=== PATIENT | male | born 1955 | race Caucasian/White ===

== ENCOUNTER 2017-10-29 12:19 | Inpatient (IN) | payer MEDICAID ==
[2017-10-29] MEDS ORDERED: Ondansetron 4 MG/2 ML SDV IV ONE (12:43)
--- NOTE | 2017-10-29 13:57 | CR ---
CLINICAL HISTORY: 62-year-old male with multiple myeloma and clinical "pneumonia". INTERPRETATION: PA lateral chest confirms peribronchial "cuffing". Healed fracture deformity (callus) posteriorly left fifth rib since 2016. Poor inspiration and patchy bibasilar atelectasis (developing retrocardiac pneumonitis on left?) new since AP portable film 13 October 2015. Clinical aspiration? Normal cardiac silhouette without cephalization of vascular flow, signs of alveolar edema or dependen t pleural effusion. No new lung mass, hilar lymphadenopathy or focal lobar pneumonia. No lobar collapse. No pneumothorax. CONCLUSION: Bronchitis. Bibasilar atelectasis (developing left lower lobe pneumonitis?). Old left fif th rib fracture.
[2017-10-29] MEDS ORDERED: cefTRIAXone 1 GM Vial IVPUSH ONE (14:03)
--- NOTE | 2017-10-29 14:07 | EDM.PDOC ---
<Carlota Molina - Last Filed: 10/29/17 19:28> ED HPI GENERAL MEDICAL PROBLEM - General Chief Complaint: General Stated Complaint: [id number] LIVER PROBLEMS NURSE TOLD TO GO TO ER Time Seen by Provider: 10/29/17 12:20 Source of Information: Reports: Patient, Family, RN, RN Notes Reviewed History Limitations: Reports: No Limitations - History of Present Illness INITIAL COMMENTS - FREE TEXT/NARRATIVE: Abimael is 62 yo male who presents today due to generalized weakness and productive cough. Reports that he was called by the clinic to come to the ED due to kidney failure. He reports that he has been sick for the last week. Has had fever and chills. Reports that he has been coughing up large amounts of sputum. Reports nausea and vomiting. Slight shortness of breath. Denies abd pain , chest pain, or bloody stools. Location: Reports: Chest (Shortness of breath ) Severity: Moderate Improves with: Reports: Rest Worsens with: Reports: Movement Associated Symptoms: Reports: cough w sputum, Fever/Chills, Nausea/Vomiting - Related Data Allergies Allergy/AdvReac Type Severity Reaction Status Date / Time No Known Allergies Allergy Verified 10/29/17 15:14 Home Meds: Home Meds Furosemide [Furosemide] 20 mg PO DAILY PRN 11/12/16 [History] Ondansetron [Ondansetron ODT] 8 mg PO Q8H PRN 11/12/16 [History] Cyanocobalamin (Vitamin B-12) [Cyanocobalamin Injection] 1,000 mcg IJ .MONTHLY 11/13/16 [History] Azithromycin [IJD: Azithromycin] 250 mg PO DAILY 10/29/17 [History] Benzonatate 100 mg PO Q6H PRN 10/29/17 [History] Methylprednisolone [IJD: Methylprednisolone] 4 mg PO ASDIRECTED 10/29/17 [ History] Potassium Chloride [Potassium Chloride Solution] 5 ml PO BID 10/29/17 [History] ED ROS GENERAL - Review of Systems Review Of Systems: ROS reveals no pertinent complaints other than HPI. ED EXAM, GENERAL - Physical Exam Exam Limited By: No Limitations General Appearance: Alert, WD/WN, No Apparent Distress Eye Exam: Bilateral Eye: PERRL Ears: Normal External Exam, Normal Canal, Hearing Grossly Normal, Normal TMs Ear Exam: Bilateral Ear: Auricle Normal, Canal Normal, TM normal Nose: Normal Inspection, Normal Mucosa, No Blood Throat/Mouth: Normal Inspection, Normal Lips, Normal Teeth, Normal Gums, Normal Oropharynx, Normal Voice, No Airway Compromise Head: Atraumatic, Normocephalic Neck: Normal Inspection, Supple, Non-Tender, Full Range of Motion Respiratory/Chest: No Respiratory Distress, Other (Coarse lung sounds noted throughout) Cardiovascular: Normal Peripheral Pulses, Regular Rate, Rhythm, No Edema, No Gallop, No JVD, No Murmur, No Rub GI/Abdominal: Normal Bowel Sounds, Soft, Non-Tender, No Organomegaly, No Distention, No Abnormal Bruit, No Mass (Male) Exam: Deferred Rectal (Males) Exam: Deferred Back Exam: Normal Inspection, Full Range of Motion, NT Extremities: Normal Inspection, Normal Range of Motion, Non-Tender, Normal Capillary Refill, No Pedal Edema Neurological: Alert, Oriented, CN II-XII Intact, Normal Cognition, Normal Gait, Normal Reflexes, No Motor/Sensory Deficits Psychiatric: Normal Affect, Normal Mood Skin Exam: Warm, Dry, Intact, Normal Color, No Rash Lymphatic: No Adenopathy Course - Vital Signs Last Recorded V/S: Last Vital Signs Temp 37.1 C 10/29/17 14:56 Pulse 83 10/29/17 14:56 Resp 20 10/29/17 14:56 BP 107/53 L 10/29/17 14:56 Pulse Ox 92 L 10/29/17 14:56 - Orders/Labs/Meds Orders: Active Orders 24 hr Category Date Time Status RT Aerosol Therapy [RC] ASDIRECTED Care 10/29/17 15:42 Active BASIC METABOLIC PANEL,BMP [CHEM] AM Lab 10/30/17 05:15 Ordered C DIFFICILE TOXIN BY PCR [MREF] Routine Lab 10/29/17 19:32 Ordered CBC WITH AUTO DIFF [HEME] AM Lab 10/30/17 05:15 Ordered CULTURE BLOOD [BC] Stat Lab 10/29/17 12:48 Received CULTURE BLOOD [BC] Stat Lab 10/29/17 12:58 Received CULTURE SPUTUM + SMEAR [RM] Routine Lab 10/29/17 16:00 Results CULTURE STREP A CONFIRMATION [RM] Routine Lab 10/29/17 16:00 Results STREP SCRN A RAPID W CULT CONF [RM] Routine Lab 10/29/17 16:00 Results Acyclovir [Zovirax] Med 10/29/17 21:00 Active 400 mg PO BID Albuterol [Proventil Neb Soln] Med 10/29/17 15:41 Active 2.5 mg NEB Q4HRRT PRN Aspirin Med 10/30/17 08:00 Active 81 mg PO WITHBREAKFAST Azithromycin [Zithromax] 500 mg Med 10/29/17 17:00 Active Sodium Chloride 0.9% [Normal Saline] 250 ml IV Q24H Benzonatate [Tessalon Perles] Med 10/29/17 15:38 Active 100 mg PO Q6H PRN NS + KCl 20mEq/L [Normal Saline with 20 mEq KCl] 1,000 Med 10/29/17 15:45 Active ml IV ASDIRECTED Pantoprazole [ProTONIX] Med 10/30/17 06:00 Active 40 mg PO ACBREAKFAST Potassium Chloride [Potassium Chloride Solution] Med 10/29/17 21:00 Active 20 meq PO BID cefTRIAXone [Rocephin] Med 10/30/17 14:00 Active 1 gm IVPUSH Q24H Blood Culture x2 Reflex Set [OM.PC] Stat Oth 10/29/17 12:42 Ordered Medication Orders Acetaminophen (Tylenol) 650 mg PO Q4H PRN PRN Reason: Pain (Mild 1-3)/fever Acyclovir (Zovirax) 400 mg PO BID SHANIA Albuterol (Proventil Neb Soln) 2.5 mg NEB Q4HRRT PRN PRN Reason: sob Aspirin (Aspirin) 81 mg PO WITHBREAKFAST SHANIA Benzonatate (Tessalon Perles) 100 mg PO Q6H PRN PRN Reason: Cough Ceftriaxone Sodium (Rocephin) 1 gm IVPUSH Q24H [facility]AN[facility] Heparin Sodium (Porcine) (Heparin Sodium) 5,000 units SUBCUT Q8HR SHAN[facility] Potassium Chloride/Sodium Chloride (Normal Saline With 20 Meq Kcl) 1,000 mls @ 100 mls/hr IV ASDIRECTED SHANIA Last Admin: 10/29/17 15:50 Dose: 100 mls/hr Azithromycin 500 mg/ Sodium (Chloride) 250 mls @ 250 mls/hr IV Q24H SHANIA Last Admin: 10/29/17 17:17 Dose: 250 mls/hr Oseltamivir Phosphate (Tamiflu) 30 mg PO BID SHANIA Pantoprazole Sodium (Protonix) 40 mg PO ACBREAKFAST SHANIA Potassium Chloride (Potassium Chloride Solution) 20 meq PO BID SHANIA Sodium Chloride (Saline Flush) 10 ml FLUSH ASDIRECTED PRN PRN Reason: Keep Vein Open Zolpidem Tartrate (Ambien) 5 mg PO BEDTIME PRN PRN Reason: Sleep Labs: Laboratory Tests 10/29/17 10/29/17 10/29/17 Range/Units 12:48 12:48 12:48 WBC 14.4 H (5.0-10.0) 10^3/uL RBC 4.60 (4.6-6.2) 10^6/uL Hgb 15.3 D (14.0-18.0) g/dL Hct 43.5 (40.0-54.0) % MCV 94.6 D (80-100) fL MCH 33.3 (27.0-34.0) pg MCHC 35.2 H (33.0-35.0) g/dL Plt Count 157 (150-450) 10^3/uL Neut % (Auto) 83.0 H (42.2-75.2) % Lymph % (Auto) 6.1 L (20.5-50.1) % [place] % (Auto) 10.8 H (2-8) % Eos % (Auto) 0.0 L (1.0-3.0) % Baso % (Auto) 0.1 (0.0-1.0) % Sodium 134 L (135-145) mmol/L Potassium 3.6 (3.6-5.0) mmol/L Chloride 99 L (101-111) mmol/L Carbon Dioxide 19.0 L (21.0-31.0) mmol/L Anion Gap 19.6 BUN 32 H (7-18) mg/dL Creatinine 3.7 H D (0.6-1.3) mg/dL Est Cr Clr Drug Dosing 23.09 mL/min Estimated GFR (MDRD) 17 BUN/Creatinine Ratio 8.64 Glucose 131 H (74-105) mg/dL Lactic Acid 2.1 (0.5-2.2) mmol/L Calcium 9.2 (8.4-10.2) mg/dl Total Bilirubin 1.2 H (0.2-1.0) mg/dL AST 49 H (10-42) IU/L ALT 49 (10-60) IU/L Alkaline Phosphatase 37 L (42-121) IU/L Total Protein 9.2 H (6.7-8.2) g/dl Albumin 4.8 (3.2-5.5) g/dl Globulin 4.4 Albumin/Globulin Ratio 1.09 Meds: Medications Generic Name Dose Route Start Last Admin Trade Name Freq PRN Reason Stop Dose Admin Acetaminophen 650 mg 10/29/17 15:49 Tylenol PO Q4H PRN Pain (Mild 1-3)/fever Acyclovir 400 mg 10/29/17 21:00 Zovirax PO BID SHANIA Albuterol 2.5 mg 10/29/17 15:41 Proventil Neb Soln NEB Q4HRRT PRN sob Aspirin 81 mg 10/30/17 08:00 Aspirin PO WITHBREAKFAST SHANIA Benzonatate 100 mg 10/29/17 15:38 Tessalon Perles PO Q6H PRN Cough Ceftriaxone Sodium 1 gm 10/30/17 14:00 Rocephin IVPUSH Q24H SHANIA Heparin Sodium (Porcine) 5,000 units 10/29/17 22:00 Heparin Sodium SUBCUT Q8HR SHANIA Potassium Chloride/Sodium Chloride 1,000 mls @ 100 mls/hr 10/29/17 15:45 15:50 Normal Saline With 20 Meq Kcl IV 100 mls/hr ASDIRECTED SHANIA Administration Azithromycin 500 mg/ Sodium 250 mls @ 250 mls/hr 10/29/17 17:00 10/29/17 17: 17 Chloride IV 250 mls/hr Q24H SHANIA Administration Oseltamivir Phosphate 30 mg 10/29/17 19:00 Tamiflu PO BID SHANIA Pantoprazole Sodium 40 mg 10/30/17 06:00 Protonix PO ACBREAKFAST SHANIA Potassium Chloride 20 meq 10/29/17 21:00 Potassium Chloride Solution PO BID [facility] Sodium Chloride 10 ml 10/29/17 15:49 Saline Flush FLUSH ASDIRECTED PRN Keep Vein Open Zolpidem Tartrate 5 mg 10/29/17 15:49 Ambien PO BEDTIME PRN Sleep Discontinued Medications Generic Name Dose Route Start Last Admin Trade Name Freq PRN Reason Stop Dose Admin Azithromycin Confirm 10/29/17 17:00 10/29/17 17:17 Zithromax Administered 10/29/17 17:01 Not Given Dose 500 mg .ROUTE .STK-MED ONE Ceftriaxone Sodium 1 gm 10/29/17 14:03 10/29/17 14:11 Rocephin IVPUSH 10/29/17 14:04 1 gm ONETIME ONE Administration Ceftriaxone Sodium 1,000 mg/ 50 mls @ 100 mls/hr 10/30/17 15:45 Sodium Chloride IV Q24H SHANIA Ondansetron HCl 4 mg 10/29/17 12:43 10/29/17 12:53 Zofran IV 10/29/17 12:44 4 mg ONETIME ONE Administration Oseltamivir Phosphate 30 mg 10/29/17 18:45 Tamiflu PO BID SHANIA Departure - Departure Disposition: Admitted As Inpatient 65 Clinical Impression: Acute renal failure Qualifiers: Acute renal failure type: unspecified Qualified Code(s): N17.9 - Acute kidney failure, unspecified Pneumonia Qualifiers: Pneumonia type: due to unspecified organism Laterality: left Lung location: lower lobe of lung Qualified Code(s): J18.1 - Lobar pneumonia, unspecified organism - Discharge Information - My Orders Last 24 Hours: My Active Orders 10/29/17 12:42 Blood Culture x2 Reflex Set [OM.PC] Stat 10/29/17 12:48 CULTURE BLOOD [BC] Stat 10/29/17 12:58 CULTURE BLOOD [BC] Stat - Assessment/Plan Last 24 Hours: My Active Orders 10/29/17 12:42 Blood Culture x2 Reflex Set [OM.PC] Stat 10/29/17 12:48 CULTURE BLOOD [BC] Stat 10/29/17 12:58 CULTURE BLOOD [BC] Stat <Darryl Arboleda - Last Filed: 10/29/17 19:35> Past Medical History HEENT History: Reports: Impaired Vision, Other (See Below) Other HEENT History: Pt wears glasses Other Cardiovascular History: lightheaded Respiratory History: Reports: SOB Musculoskeletal History: Reports: Fracture Other Musculoskeletal History: 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 Hematologic History: Reports: Anemia Oncologic (Cancer) History: Reports: Other (See Below) Other Oncologic History: multiple myeloma - Infectious Disease History Infectious Disease History: Reports: Chicken Pox, Measles, Mumps, Rubella - Past Surgical History Cardiovascular Surgical History: Reports: None Oncologic Surgical History: Reports: Bone Marrow Aspiration Social & Family History - Family History Family Medical History: Noncontributory Cardiac: Reports: ID Neurological: Reports: CVA Psychiatric: Reports: Depression Endocrine/Metabolic: Reports: Diabetes, type II Oncologic: Reports: Leukemia - Tobacco Use Smoking Status *Q: Never Smoker Second Hand Smoke Exposure: No - Caffeine Use Caffeine Use: Reports: Coffee, Soda - Recreational Drug Use Recreational Drug Use: No ED EXAM, GENERAL - Physical Exam Exam: See Below Departure - Departure Time of Disposition: 14:04 Condition: Fair
[2017-10-29] MEDS ORDERED: Benzonatate 100 MG Cap PO PRN (15:38)
[2017-10-29] MEDS ORDERED: Albuterol 0.083% 2.5 MG/3 ML Neb Soln NEB PRN (15:41)
[2017-10-29] MEDS ORDERED: Zolpidem 5 MG Tab PO PRN (15:49)
[2017-10-29] MEDS ORDERED: Acetaminophen 325 MG Tab PO PRN (15:49)
[2017-10-29] MEDS ORDERED: Sodium Chloride 0.9% 10 ML Syringe FLUSH PRN (15:49)
[2017-10-29] MEDS: NS + KCl 20mEq/L 1,000 ML IV SCH (15:50)
--- NOTE | 2017-10-29 16:08 | PCM.HP ---
H&P History of Present Illness - General Date of Service: 10/29/17 Admit Problem/Dx: Admission Diagnosis/Problem Admission Diagnosis/Problem Acute renal failure Source of Information: Patient, Family - History of Present Illness Initial Comments - Free Text/Narative: The patient is a 62-year-old with a history of multiple myeloma. The patient has been on chemotherapy. He has been on prophylaxis with Valtrex and Bactrim. The patient developed generalized weakness, sore throat, chills. Associated with cough and yellow sputum. This started about 2-3 days prior to presentation. The patient was seen by his primary care physician today and was told to start antibiotic. He was given a prescription of azithromycin. He was given 1 g of IV Rocephin. He was given steroid Dosepak. He took on today's doses in one go around noon. He is also complaining all found was bowel movement. Had 4 watery diarrhea yesterday. 2 today. No associated abdominal pain. He was supposed to get chemotherapy tomorrow. He had the blood test today. He was noted to have elevated creatinine and was told to come to the emergency room. - Related Data Allergies/Adverse Reactions: Allergies Allergy/AdvReac Type Severity Reaction Status Date / Time No Known Allergies Allergy Verified 10/29/17 15:14 Home Medications: Home Meds Furosemide [Furosemide] 20 mg PO DAILY PRN 11/12/16 [History] Ondansetron [Ondansetron ODT] 8 mg PO Q8H PRN 11/12/16 [History] Cyanocobalamin (Vitamin B-12) [Cyanocobalamin Injection] 1,000 mcg IJ .MONTHLY 11/13/16 [History] Azithromycin [IJD: Azithromycin] 250 mg PO DAILY 10/29/17 [History] Benzonatate 100 mg PO Q6H PRN 10/29/17 [History] Methylprednisolone [IJD: Methylprednisolone] 4 mg PO ASDIRECTED 10/29/17 [ History] Potassium Chloride [Potassium Chloride Solution] 5 ml PO BID 10/29/17 [History] Past Medical History HEENT History: Reports: Impaired Vision, Other (See Below) Other HEENT History: Pt wears glasses Other Cardiovascular History: lightheaded Respiratory History: Reports: SOB, Other (See Below) Other Respiratory History: SOB with chemo Gastrointestinal History: Reports: None Musculoskeletal History: Reports: Fracture Other Musculoskeletal History: 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 Endocrine/Metabolic History: Reports: Obesity/BMI 30+ Hematologic History: Reports: Anemia Oncologic (Cancer) History: Reports: Other (See Below) Other Oncologic History: multiple myeloma - Infectious Disease History Infectious Disease History: Reports: Chicken Pox, Measles, Mumps, Rubella - Past Surgical History Head Surgeries/Procedures: Reports: None HEENT Surgical History: Reports: None Cardiovascular Surgical History: Reports: None Respiratory Surgical History: Reports: None GI Surgical History: Reports: Colonoscopy Endocrine Surgical History: Reports: None Musculoskeletal Surgical History: Reports: None Oncologic Surgical History: Reports: Bone Marrow Aspiration Social & Family History - Family History Family Medical History: Noncontributory Cardiac: Reports: SD Neurological: Reports: CVA Psychiatric: Reports: Depression Endocrine/Metabolic: Reports: Diabetes, type II Oncologic: Reports: Leukemia - Tobacco Use Smoking Status *Q: Never Smoker Second Hand Smoke Exposure: Yes - Caffeine Use Caffeine Use: Reports: Coffee, Soda - Recreational Drug Use Recreational Drug Use: No H&P Review of Systems - Review of Systems: Review Of Systems: See Below General: Reports: Chills. Denies: Fever Pulmonary: Reports: Shortness of Breath, Cough, Sputum. Denies: Hemoptysis Cardiovascular: Denies: Chest Pain Gastrointestinal: Denies: Abdominal Pain Genitourinary: Denies: Dysuria Psychiatric: Denies: Confusion Exam - Exam Exam: See Below - Vital Signs Vital Signs: Last Vital Signs Temp 37.1 C 10/29/17 14:56 Pulse 83 10/29/17 14:56 Resp 20 10/29/17 14:56 BP 107/53 L 10/29/17 14:56 Pulse Ox 92 L 10/29/17 14:56 Weight: 111.493 kg - Exam General: Alert, Oriented Lungs: Normal Respiratory Effort, Decreased Breath Sounds Cardiovascular: Regular Rate, Regular Rhythm GI/Abdominal Exam: Normal Bowel Sounds, Soft, Non-Tender Extremities: No Pedal Edema - Patient Data Result Diagrams: 10/29/17 12:48 10/29/17 12:48 Imaging Impressions Last 24 hrs: The official reading of the chest x-ray from today was questioning left lower lobe infiltrate, bronchitis. *Q Meaningful Use (ADM) - VTE *Q VTE Criteria *Q: - Stroke *Q Stroke Criteria *Q: - AMI *Q AMI Criteria *Q: - Problem List (1) Acute renal failure SNOMED Code(s): 23149599 ICD Code: N17.9 - ACUTE KIDNEY FAILURE, UNSPECIFIED Status: Acute Current Visit: Yes Qualifiers: Acute renal failure type: unspecified Qualified Code(s): N17.9 - Acute kidney failure, unspecified (2) Pneumonia SNOMED Code(s): 473560058 ICD Code: J18.9 - PNEUMONIA, UNSPECIFIED ORGANISM Status: Acute Current Visit: Yes Qualifiers: Pneumonia type: due to unspecified organism Laterality: left Lung location: lower lobe of lung Qualified Code(s): J18.1 - Lobar pneumonia, unspecified organism Problem List Initiated/Reviewed/Updated: Yes Orders Last 24hrs: Active Orders 24 hr Category Date Time Status Patient Status [ADT] Routine ADT 10/29/17 15:49 Ordered Antiembolic Devices [RC] PER UNIT ROUTINE Care 10/29/17 15:52 Ordered Oxygen Therapy [RC] PRN Care 10/29/17 15:49 Ordered Peripheral IV Care [RC] . DIRECTED Care 10/29/17 15:52 Ordered RT Aerosol Therapy [RC] ASDIRECTED Care 10/29/17 15:42 Ordered Up With Assistance [RC] ASDIRECTED Care 10/29/17 15:49 Ordered VTE/DVT Education [RC] PER UNIT ROUTINE Care 10/29/17 15:49 Ordered Vital Signs [RC] Q4H Care 10/29/17 15:49 Ordered Regular Diet [DIET] Diet 10/29/17 Dinner Ordered BASIC METABOLIC PANEL,BMP [CHEM] AM Lab 10/30/17 05:15 Ordered C DIFFICILE TOXIN BY PCR [MREF] Routine Lab 10/29/17 15:37 Ordered CBC WITH AUTO DIFF [HEME] AM Lab 10/30/17 05:15 Ordered CULTURE SPUTUM + SMEAR [RM] Routine Lab 10/29/17 15:23 Ordered INFLUENZA A+B AG SCREEN [RM] Urgent Lab 10/29/17 15:23 Ordered MAGNESIUM [CHEM] AM Lab 10/30/17 05:11 Ordered PHOSPHORUS [CHEM] AM Lab 10/30/17 05:11 Ordered STREP SCRN A RAPID W CULT CONF [RM] Routine Lab 10/29/17 15:23 Ordered Acetaminophen [Tylenol] Med 10/29/17 15:49 Ordered 650 mg PO Q4H PRN Acyclovir [Zovirax] Med 10/29/17 21:00 Ordered 400 mg PO BID Albuterol [Proventil Neb Soln] Med 10/29/17 15:41 Ordered 2.5 mg NEB Q4HRRT PRN Aspirin Med 10/30/17 08:00 Ordered 81 mg PO WITHBREAKFAST Azithromycin [Zithromax] 500 mg Med 10/30/17 15:45 Ordered Sodium Chloride 0.9% [Normal Saline] 250 ml IV Q24H Benzonatate [Tessalon Perles] Med 10/29/17 15:38 Ordered 100 mg PO Q6H PRN Heparin Sodium Med 10/29/17 22:00 Ordered 5,000 units SUBCUT Q8HR Pantoprazole [ProTONIX] Med 10/30/17 06:00 Ordered 40 mg PO ACBREAKFAST Potassium Chloride [Potassium Chloride Solution] Med 10/29/17 21:00 Ordered 20 meq PO BID Sodium Chloride 0.9% [Saline Flush] Med 10/29/17 15:49 Ordered 10 ml FLUSH ASDIRECTED PRN Sodium Chloride 0.9% with KCl 20 mEq @ 100 mL/Hr (1000 Med 10/29/17 15:45 Ordered mL) NS + KCl 20mEq/L [Normal Saline with 20 mEq KCl] 1,000 ml IV ASDIRECTED Zolpidem [Ambien] Med 10/29/17 15:49 Ordered 5 mg PO BEDTIME PRN cefTRIAXone [Rocephin] Med 10/30/17 14:00 Active 1 gm IVPUSH Q24H Antiembolic Hose [OM.PC] Per Unit Routine Oth 10/29/17 15:51 Ordered Peripheral IV Insertion Adult [OM.PC] Routine Oth 10/29/17 15:49 Ordered Resuscitation Status Routine Resus Stat 10/29/17 15:49 Ordered Medication Orders Acetaminophen (Tylenol) 650 mg PO Q4H PRN PRN Reason: Pain (Mild 1-3)/fever Acyclovir (Zovirax) 400 mg PO BID SHANIA Albuterol (Proventil Neb Soln) 2.5 mg NEB Q4HRRT PRN PRN Reason: sob Aspirin (Aspirin) 81 mg PO WITHBREAKFAST SHANIA Benzonatate (Tessalon Perles) 100 mg PO Q6H PRN PRN Reason: Cough Ceftriaxone Sodium (Rocephin) 1 gm IVPUSH Q24H [facility] Heparin Sodium (Porcine) (Heparin Sodium) 5,000 units SUBCUT Q8HR [facility] Potassium Chloride/Sodium Chloride (Normal Saline With 20 Meq Kcl) 1,000 mls @ 100 mls/hr IV ASDIRECTED [facility] Last Admin: 10/29/17 15:50 Dose: 100 mls/hr Azithromycin 500 mg/ Sodium (Chloride) 250 mls @ 250 mls/hr IV Q24H [facility] Pantoprazole Sodium (Protonix) 40 mg PO ACBREAKFAST [facility] Potassium Chloride (Potassium Chloride Solution) 20 meq PO BID [facility] Sodium Chloride (Saline Flush) 10 ml FLUSH ASDIRECTED PRN PRN Reason: Keep Vein Open Zolpidem Tartrate (Ambien) 5 mg PO BEDTIME PRN PRN Reason: Sleep Assessment/Plan Comment:: The patient is a 62-year-old gentleman with history of multiple myeloma, chemotherapy, immunosuppressed status. #1 acute bronchitis, possible pneumonia We will obtain sputum culture, blood culture, influenza swab, strep throat swab Empirically treat with azithromycin, ceftriaxone. #2 diarrhea Check for C. difficile #3 acute renal failure This might relate to dehydration due to diarrhea. Will give IV fluids. Follow creatinine and electrolytes. #4 DVT prophylaxis will be subcutaneous tetanus heparin
[2017-10-29] MEDS ORDERED: Azithromycin 500 MG Vial ONE (17:00)
[2017-10-29] MEDS: Azithromycin 500 MG in Sodium Chloride 0.9% 250 ML IV SCH (17:17)
[2017-10-29] MEDS ORDERED: Oseltamivir 30 MG Cap PO SCH ×2 (18:45→19:00)
[2017-10-29] MEDS: Acyclovir 200 MG Cap PO SCH (21:42)
[2017-10-29] MEDS: Potassium Chloride 10% 20 MEQ/15 ML Soln 15 ML UD Cup PO SCH (21:43)
[2017-10-29] MEDS: Heparin Sodium 5,000 Units/ML Vial SUBCUT SCH (21:43)
[2017-10-30] MEDS: NS + KCl 20mEq/L 1,000 ML IV SCH (03:54)
[2017-10-30] MEDS: Pantoprazole 40 MG Tab.CR PO SCH (05:49)
[2017-10-30] MEDS: Heparin Sodium 5,000 Units/ML Vial SUBCUT SCH ×3 (05:50→21:42)
[2017-10-30] MEDS: Aspirin 81 MG Tab.Chew PO SCH (08:13)
[2017-10-30] MEDS: Potassium Chloride 10% 20 MEQ/15 ML Soln 15 ML UD Cup PO SCH ×2 (08:13→21:33)
[2017-10-30] MEDS: Oseltamivir 30 MG Cap PO SCH (08:13)
[2017-10-30] MEDS: Acyclovir 200 MG Cap PO SCH ×2 (08:13→21:33)
[2017-10-30] MEDS: cefTRIAXone 1 GM Vial IVPUSH SCH (14:07)
[2017-10-30] MEDS ORDERED: cefTRIAXone 1,000 MG in Sodium Chloride 0.9% 50 ML IV SCH (15:45)
[2017-10-30] MEDS: Sodium Chloride 0.9% 1,000 ML IV SCH ×3 (16:50→19:15)
[2017-10-30] MEDS: Azithromycin 500 MG in Sodium Chloride 0.9% 250 ML IV SCH (18:05)
[2017-10-30] MEDS: Albuterol 6.7 GM Inhaler INH SCH ×2 (18:25→21:34)
--- NOTE | 2017-10-30 23:33 | PCM.PN ---
- General Info Date of Service: 10/30/17 Admission Dx/Problem (Free Text): Patient is a 62-year-old male admitted because of shortness of breath and diarrhea. Was noted to have influenza infection. Patient continues to have episodes of large bowel movement since admission, reported to have 3 episodes. Stools are really watery. Otherwise, denies any abdominal pain, nausea or vomiting. Able to tolerate meals. No leg swelling. Ambulating fine. - Patient Data Vitals - Most Recent: Last Vital Signs Temp 99.5 F 10/30/17 23:16 Pulse 80 10/30/17 23:16 Resp 20 10/30/17 23:16 BP 127/67 10/30/17 23:16 Pulse Ox 94 L 10/30/17 23:16 Weight - Most Recent: 245 lb 12.8 oz I&O - Last 24 Hours: Intake & Output 10/30/17 10/30/17 10/31/17 14:59 22:59 06:59 Intake Total 880 1637 Balance 880 1637 Lab Results Last 24 Hours: Laboratory Results - last 24 hr 10/30/17 10/30/17 Range/Units 06:15 06:15 WBC 8.3 (5.0-10.0) 10^3/uL RBC 3.97 L (4.6-6.2) 10^6/uL Hgb 13.0 L D (14.0-18.0) g/dL Hct 38.0 L (40.0-54.0) % MCV 95.7 (80-100) fL MCH 32.7 (27.0-34.0) pg MCHC 34.2 (33.0-35.0) g/dL Plt Count 138 L (150-450) 10^3/uL Neut % (Auto) 80.0 H (42.2-75.2) % Lymph % (Auto) 8.9 L (20.5-50.1) % [place] % (Auto) 11.0 H (2-8) % Eos % (Auto) 0.0 L (1.0-3.0) % Baso % (Auto) 0.1 (0.0-1.0) % Sodium 136 (135-145) mmol/L Potassium 4.0 (3.6-5.0) mmol/L Chloride 107 (101-111) mmol/L Carbon Dioxide 15.0 L (21.0-31.0) mmol/L Anion Gap 18.0 BUN 48 H (7-18) mg/dL Creatinine 5.0 H D (0.6-1.3) mg/dL Est Cr Clr Drug Dosing 17.09 mL/min Estimated GFR (MDRD) 12 Glucose 113 H (74-105) mg/dL Calcium 8.1 L (8.4-10.2) mg/dl Phosphorus 4.5 (2.5-4.6) mg/dL Magnesium 1.7 L (1.8-2.5) mg/dL Carlos Results Last 24 Hours: Microbiology 10/29/17 16:00 Quick Strep Confirmation Culture - Final Throat NO GROUP A STREP ISOLATED Group A Streptococcus Rapid Screen - Final NEGATIVE STREP A SCREEN Med Orders - Current: Current Medications Acetaminophen (Tylenol) 650 mg PO Q4H PRN PRN Reason: Pain (Mild 1-3)/fever Acyclovir (Zovirax) 400 mg PO BID [facility] Last Admin: 10/30/17 21:33 Dose: 400 mg Albuterol (Proventil Hfa) 0 gm INH Q4H [facility] Last Admin: 10/30/17 21:34 Dose: 2 inhalation Aspirin (Aspirin) 81 mg PO WITHBREAKFAST [facility] Last Admin: 10/30/17 08:13 Dose: 81 mg Benzonatate (Tessalon Perles) 100 mg PO Q6H PRN PRN Reason: Cough Ceftriaxone Sodium (Rocephin) 1 gm IVPUSH Q24H [facility] Last Admin: 10/30/17 14:07 Dose: 1 gm Heparin Sodium (Porcine) (Heparin Sodium) 5,000 units SUBCUT Q8HR [facility] Last Admin: 10/30/17 21:42 Dose: 5,000 units Azithromycin 500 mg/ Sodium (Chloride) 250 mls @ 250 mls/hr IV Q24H [facility] Last Infusion: 10/30/17 20:13 Dose: Infused Sodium Chloride (Normal Saline) 1,000 mls @ 100 mls/hr IV ASDIRECTED [facility] Last Admin: 10/30/17 19:15 Dose: 100 mls/hr Oseltamivir Phosphate (Tamiflu) 30 mg PO DAILY [facility] Last Admin: 10/30/17 08:13 Dose: 30 mg Pantoprazole Sodium (Protonix) 40 mg PO ACBREAKFAST [facility] Last Admin: 10/30/17 05:49 Dose: 40 mg Potassium Chloride (Potassium Chloride Solution) 20 meq PO BID [facility] Last Admin: 10/30/17 21:33 Dose: 20 meq Sodium Chloride (Saline Flush) 10 ml FLUSH ASDIRECTED PRN PRN Reason: Keep Vein Open Zolpidem Tartrate (Ambien) 5 mg PO BEDTIME PRN PRN Reason: Sleep Last Admin: 10/29/17 21:45 Dose: 5 mg Discontinued Medications Albuterol (Proventil Neb Soln) 2.5 mg NEB Q4HRRT PRN PRN Reason: sob Azithromycin (Zithromax) Confirm Administered Dose 500 mg .ROUTE .STK-MED ONE Stop: 10/29/17 17:01 Last Admin: 10/29/17 17:17 Dose: Not Given Ceftriaxone Sodium (Rocephin) 1 gm IVPUSH ONETIME ONE Stop: 10/29/17 14:04 Last Admin: 10/29/17 14:11 Dose: 1 gm Potassium Chloride/Sodium Chloride (Normal Saline With 20 Meq Kcl) 1,000 mls @ 100 mls/hr IV ASDIRECTED [facility] Last Infusion: 10/30/17 17:33 Dose: Infused Ceftriaxone Sodium 1,000 mg/ (Sodium Chloride) 50 mls @ 100 mls/hr IV Q24H [facility] Sodium Chloride (Normal Saline) 1,000 mls @ 999 mls/hr IV ASDIRECTED [facility] Last Admin: 10/30/17 18:02 Dose: 125 mls/hr Ondansetron HCl (Zofran) 4 mg IV ONETIME ONE Stop: 10/29/17 12:44 Last Admin: 10/29/17 12:53 Dose: 4 mg Oseltamivir Phosphate (Tamiflu) 30 mg PO BID [facility] Oseltamivir Phosphate (Tamiflu) 30 mg PO BID [facility] Last Admin: 10/29/17 20:01 Dose: 30 mg Sodium Chloride (Normal Saline) 999 ml IV ONETIME ONE Stop: 10/30/17 10:11 Last Admin: 10/30/17 10:37 Dose: 999 ml - Exam General: Alert, Oriented Lungs: Clear to Auscultation, Normal Respiratory Effort Cardiovascular: Regular Rate, Regular Rhythm Extremities: No Pedal Edema - Problem List Review Problem List Initiated/Reviewed/Updated: Yes - My Orders Last 24 Hours: My Active Orders 10/30/17 16:30 Intake and Output Strict [RC] ASDIRECTED 10/30/17 16:34 Daily Weight [Height and Weight] [RC] 0600 10/30/17 17:45 RT Pre-Treatment Assessment [RC] Click to Edit Albuterol [Proventil HFA] 0 gm INH Q4H 10/30/17 19:15 Sodium Chloride 0.9% [Normal Saline] 1,000 ml IV ASDIRECTED - Plan Plan:: Acute bronchitis - Continue with azithromycin and ceftriaxone for now, await sputum culture sensitivity results -Patient eventually for a place that he doesn't want to do nebulization and prefers to do albuterol inhaler. This was ordered. - Monitor saturations closely Acute renal failure - Likely prerenal given the loss is from diarrhea - He will be given normal saline boluses today, strict output monitoring - Monitor BMP tomorrow Diarrhea - Specimen sent for C. difficile, await results
[2017-10-31] MEDS: Albuterol 6.7 GM Inhaler INH SCH ×8 (01:29→22:20)
[2017-10-31] MEDS: Sodium Chloride 0.9% 1,000 ML IV SCH (03:06)
[2017-10-31] MEDS: Heparin Sodium 5,000 Units/ML Vial SUBCUT SCH ×3 (05:56→22:20)
[2017-10-31] MEDS: Pantoprazole 40 MG Tab.CR PO SCH (05:56)
[2017-10-31] MEDS ORDERED: Furosemide 20 MG/2 ML VIAL IVPUSH ONE (09:34)
[2017-10-31] MEDS: Aspirin 81 MG Tab.Chew PO SCH (10:00)
[2017-10-31] MEDS: Potassium Chloride 10% 20 MEQ/15 ML Soln 15 ML UD Cup PO SCH ×2 (10:00→20:39)
[2017-10-31] MEDS: Acyclovir 200 MG Cap PO SCH ×2 (10:00→20:38)
[2017-10-31] MEDS: Oseltamivir 30 MG Cap PO SCH (10:00)
--- NOTE | 2017-10-31 10:30 | PCM.PN ---
- General Info Date of Service: 10/31/17 Admission Dx/Problem (Free Text): Mr. Goldsmith is a 62 year old male seen today on his subsequent hospital stay. The patient has multiple concerns since admission. Yesterday, renal numbers have increased. He continues to have episodes of large, watery, bowel movements. He was given 2 boluses of normal saline yesterday. Noticed some weight gain overnight but denies any shortness of breath. Actually today, he feels better. He is concerned because he is not getting good, quite at the rest because of frequent checks such as blood pressure, blood draws among others. Since yesterday, he had 4 episodes of watery bowel movements. Able to tolerate meals. Reports that she is putting out good amount of urine. Functional Status: Reports: Pain Controlled, Tolerating Diet, Ambulating, Urinating - Patient Data Vitals - Most Recent: Last Vital Signs Temp 98.8 F 10/31/17 07:00 Pulse 77 10/31/17 07:00 Resp 16 10/31/17 07:00 BP 114/58 L 10/31/17 07:00 Pulse Ox 94 L 10/31/17 07:00 Weight - Most Recent: 251 lb 6.4 oz I&O - Last 24 Hours: Intake & Output 10/30/17 10/31/17 10/31/17 22:59 06:59 14:59 Intake Total 1637 1907 Output Total 375 420 Balance 1262 1487 Lab Results Last 24 Hours: Laboratory Results - last 24 hr 10/31/17 10/31/17 Range/Units 06:05 06:05 WBC 5.3 (5.0-10.0) 10^3/uL RBC 3.53 L (4.6-6.2) 10^6/uL Hgb 11.6 L (14.0-18.0) g/dL Hct 34.0 L (40.0-54.0) % MCV 96.3 (80-100) fL MCH 32.9 (27.0-34.0) pg MCHC 34.1 (33.0-35.0) g/dL Plt Count 119 L (150-450) 10^3/uL Neut % (Auto) 71.7 (42.2-75.2) % Lymph % (Auto) 13.2 L (20.5-50.1) % [place] % (Auto) 14.9 H (2-8) % Eos % (Auto) 0.0 L (1.0-3.0) % Baso % (Auto) 0.2 (0.0-1.0) % Sodium 135 (135-145) mmol/L Potassium 3.9 (3.6-5.0) mmol/L Chloride 111 (101-111) mmol/L Carbon Dioxide 13.0 L (21.0-31.0) mmol/L Anion Gap 14.9 BUN 51 H (7-18) mg/dL Creatinine 4.0 H (0.6-1.3) mg/dL Est Cr Clr Drug Dosing 21.36 mL/min Estimated GFR (MDRD) 15 Glucose 88 (74-105) mg/dL Calcium 7.6 L (8.4-10.2) mg/dl Magnesium 1.5 L (1.8-2.5) mg/dL Carlos Results Last 24 Hours: Microbiology 10/29/17 16:00 Quick Strep Confirmation Culture - Final Throat NO GROUP A STREP ISOLATED Group A Streptococcus Rapid Screen - Final NEGATIVE STREP A SCREEN Med Orders - Current: Current Medications Acetaminophen (Tylenol) 650 mg PO Q4H PRN PRN Reason: Pain (Mild 1-3)/fever Acyclovir (Zovirax) 400 mg PO BID [facility] Last Admin: 10/31/17 10:00 Dose: 400 mg Albuterol (Proventil Hfa) 0 gm INH Q4H [facility] Last Admin: 10/31/17 10:01 Dose: Not Given Aspirin (Aspirin) 81 mg PO WITHBREAKFAST [facility] Last Admin: 10/31/17 10:00 Dose: 81 mg Benzonatate (Tessalon Perles) 100 mg PO Q6H PRN PRN Reason: Cough Ceftriaxone Sodium (Rocephin) 1 gm IVPUSH Q24H [facility] Last Admin: 10/30/17 14:07 Dose: 1 gm Heparin Sodium (Porcine) (Heparin Sodium) 5,000 units SUBCUT Q8HR [facility] Last Admin: 10/31/17 05:56 Dose: 5,000 units Azithromycin 500 mg/ Sodium (Chloride) 250 mls @ 250 mls/hr IV Q24H [facility] Last Infusion: 10/30/17 20:13 Dose: Infused Magnesium Oxide (Magnesium Oxide) 250 mg PO BIDM [facility] Oseltamivir Phosphate (Tamiflu) 30 mg PO DAILY [facility] Last Admin: 10/31/17 10:00 Dose: 30 mg Pantoprazole Sodium (Protonix) 40 mg PO ACBREAKFAST [facility] Last Admin: 10/31/17 05:56 Dose: 40 mg Potassium Chloride (Potassium Chloride Solution) 20 meq PO BID [facility] Last Admin: 10/31/17 10:00 Dose: 20 meq Sodium Bicarbonate (Sodium Bicarbonate) 650 mg PO BID [facility] Sodium Chloride (Saline Flush) 10 ml FLUSH ASDIRECTED PRN PRN Reason: Keep Vein Open Zolpidem Tartrate (Ambien) 5 mg PO BEDTIME PRN PRN Reason: Sleep Last Admin: 10/29/17 21:45 Dose: 5 mg Discontinued Medications Albuterol (Proventil Neb Soln) 2.5 mg NEB Q4HRRT PRN PRN Reason: sob Azithromycin (Zithromax) Confirm Administered Dose 500 mg .ROUTE .STK-MED ONE Stop: 10/29/17 17:01 Last Admin: 10/29/17 17:17 Dose: Not Given Ceftriaxone Sodium (Rocephin) 1 gm IVPUSH ONETIME ONE Stop: 10/29/17 14:04 Last Admin: 10/29/17 14:11 Dose: 1 gm Furosemide (Lasix) 10 mg IVPUSH ONETIME ONE Stop: 10/31/17 09:35 Last Admin: 10/31/17 10:00 Dose: 10 mg Potassium Chloride/Sodium Chloride (Normal Saline With 20 Meq Kcl) 1,000 mls @ 100 mls/hr IV ASDIRECTED [facility] Last Infusion: 10/30/17 17:33 Dose: Infused Ceftriaxone Sodium 1,000 mg/ (Sodium Chloride) 50 mls @ 100 mls/hr IV Q24H [facility] Sodium Chloride (Normal Saline) 1,000 mls @ 999 mls/hr IV ASDIRECTED [facility] Last Admin: 10/30/17 18:02 Dose: 125 mls/hr Sodium Chloride (Normal Saline) 1,000 mls @ 100 mls/hr IV ASDIRECTED [facility] Last Admin: 10/31/17 03:06 Dose: 100 mls/hr Ondansetron HCl (Zofran) 4 mg IV ONETIME ONE Stop: 10/29/17 12:44 Last Admin: 10/29/17 12:53 Dose: 4 mg Oseltamivir Phosphate (Tamiflu) 30 mg PO BID [facility] Oseltamivir Phosphate (Tamiflu) 30 mg PO BID [facility] Last Admin: 10/29/17 20:01 Dose: 30 mg Sodium Chloride (Normal Saline) 999 ml IV ONETIME ONE Stop: 10/30/17 10:11 Last Admin: 10/30/17 10:37 Dose: 999 ml - Exam General: Alert, Oriented Lungs: Normal Respiratory Effort, Other (Occasional rhonchi, coarse breath sounds) Cardiovascular: Regular Rate, Regular Rhythm GI/Abdominal Exam: Normal Bowel Sounds, Soft, Non-Tender Extremities: No Pedal Edema - Problem List Review Problem List Initiated/Reviewed/Updated: Yes - My Orders Last 24 Hours: My Active Orders 10/30/17 16:30 Intake and Output Strict [] ASDIRECTED 10/30/17 16:34 Daily Weight [Height and Weight] [] 0600 10/30/17 17:45 RT Pre-Treatment Assessment [RC] Click to Edit Albuterol [Proventil HFA] 0 gm INH Q4H 10/31/17 18:00 Magnesium Oxide 250 mg PO BIDM 10/31/17 21:00 Sodium Bicarbonate 650 mg PO BID - Plan Plan:: Acute renal failure - Likely prerenal given the loss is from diarrhea - Slight improvement of the creatinine today, he had gotten 2 L bolus yesterday. - Patient continues to put out good amount of urine. Continue stick input and output monitoring. He had gained weight today most likely from the boluses. - Bicarbonate has been low, start sodium bicarbonate twice a day. - Repeat BMP tomorrow Hypomagnesemia - Likely from GI losses - Cautiously correct hypomagnesemia in the setting of renal failure - Magnesium oxide twice a day, repeat magnesium tomorrow Acute bronchitis, with developing pneumonitis - Continue with azithromycin and ceftriaxone for now, await sputum culture sensitivity results -We have switched nebulization TO inhalers PER patient's preference - He has been afebrile, consider switching antibiotics to by mouth - Encouraged to do incentive spirometry Diarrhea - Specimen sent for C. difficile, await results Multiple myeloma - Being followed by oncologist outpatient, had chemotherapy 2 weeks ago - Hemoglobin in the anemic side, now would renal failure which is new and being corrected Influenza infection - He did not have influenza vaccination this season - Continue and finish Tamiflu DVT prophylaxis - Continue with heparin subcutaneously
[2017-10-31] MEDS: cefTRIAXone 1 GM Vial IVPUSH SCH (15:35)
[2017-10-31] MEDS: Azithromycin 500 MG in Sodium Chloride 0.9% 250 ML IV SCH (17:56)
[2017-10-31] MEDS: Sodium Bicarbonate 650 MG Tab PO SCH (20:39)
[2017-11-01] MEDS: Albuterol 6.7 GM Inhaler INH SCH ×3 (01:09→09:33)
[2017-11-01] MEDS: Pantoprazole 40 MG Tab.CR PO SCH (05:53)
[2017-11-01] MEDS: Heparin Sodium 5,000 Units/ML Vial SUBCUT SCH (05:54)
[2017-11-01 08:10] VITALS: BP 119/60
[2017-11-01] MEDS ORDERED: Potassium Chloride 10 MEQ Tab.ER PO SCH (08:30)
[2017-11-01] MEDS: Oseltamivir 30 MG Cap PO SCH (08:33)
[2017-11-01] MEDS: Acyclovir 200 MG Cap PO SCH (08:34)
[2017-11-01] MEDS: Sodium Bicarbonate 650 MG Tab PO SCH (08:34)
[2017-11-01] MEDS: Aspirin 81 MG Tab.Chew PO SCH (08:34)
[2017-11-01] MEDS ORDERED: Amoxicillin/Clavulanate K 875-125 MG Tab PO SCH (09:00)
[2017-11-01] MEDS ORDERED: Azithromycin 250 MG Tab PO SCH (09:00)
--- NOTE | 2017-11-01 11:13 | PCM.DCSUM1 ---
Discharge Summary - Hospital Course Free Text/Narrative:: The patient is a 62-year-old with a history of multiple myeloma. The patient has been on chemotherapy. He has been on prophylaxis with Valtrex and Bactrim. The patient developed generalized weakness, sore throat, chills. Associated with cough and yellow sputum. This started about 2-3 days prior to presentation. The patient was seen by his primary care physician on 10/28 and was told to start antibiotic. He was given a prescription of azithromycin. He was given 1 g of IV Rocephin. He was given steroid Dosepak. He took on today's doses in one go around noon. He is also complaining watery diarrhea multiple times. No associated abdominal pain. He was supposed to get chemotherapy on 10/29, which he missed. He had the blood test today. He was noted to have elevated creatinine and was told to come to the emergency room. and got admitted He was treted with IV Azithromycin and Ceftriaxone. he is switched to oral Augmentin and Azithromycin in anticipation of discharge today. He is feeling well and will be able to go home today. He will follow with PMD in 4-5 days. He will also be seen in renal clinic and will follow the renal function. His renal function is Improving. - Discharge Data Discharge Date: 11/01/17 Discharge Disposition: Home, Self-Care 01 Condition: Good - Patient Instructions Diet: Regular Diet as Tolerated Activity: As Tolerated Driving: May Drive Today Showering/Bathing: May Shower Notify Provider of: Fever, Nausea and/or Vomiting Other/Special Instructions: he patient is a 62-year-old with a history of multiple myeloma. The patient has been on chemotherapy. He has been on prophylaxis with Valtrex and Bactrim. He had 4 watery diarrhea yesterday No associated abdominal pain. He was supposed to get chemotherapy on 10/02/17. He was noted to have elevated creatinine and was told to come to the emergency room. renal function is Improving and will be seen in renal clinic. He will go home on Augmentin X 7 days course and will follow with PMD within 3-4 days. Advise to drink plenty of fluids - Discharge Plan Prescriptions/Med Rec: Amoxicillin/Clavulanate K [Augmentin 875-125 MG] 1 tab PO Q12HR #14 tablet Oseltamivir [Tamiflu] 45 mg PO DAILY #2 cap Sodium Bicarbonate 650 mg PO BID #60 tablet Home Medications: Home Meds Furosemide 20 mg PO DAILY PRN 11/12/16 [History] Ondansetron [Ondansetron ODT] 8 mg PO Q8H PRN 11/12/16 [History] Cyanocobalamin (Vitamin B-12) [Cyanocobalamin Injection] 1,000 mcg IJ .MONTHLY 11/13/16 [History] Benzonatate 100 mg PO Q6H PRN 10/29/17 [History] Methylprednisolone [IJD: Methylprednisolone] 4 mg PO ASDIRECTED 10/29/17 [ History] Potassium Chloride [Potassium Chloride Solution] 5 ml PO BID 10/29/17 [History] Amoxicillin/Clavulanate K [Augmentin 875-125 MG] 1 tab PO Q12HR #14 tablet 11/01 [Rx] Oseltamivir [Tamiflu] 45 mg PO DAILY #2 cap 11/01/17 [Rx] Sodium Bicarbonate 650 mg PO BID #60 tablet 11/01/17 [Rx] valACYclovir HCl [Valtrex] 500 mg PO DAILY 11/01/17 [History] Patient Handouts: Acute Kidney Injury, Adult, Influenza, Adult, [id number], Acute Bronchitis, Adult, [id number] - Discharge Summary/Plan Comment DC Time >30 min.: Yes Discharge Summary/Plan Comment: The patient is a 62-year-old gentleman with history of multiple myeloma, chemotherapy, immunosuppressed status. admitted with Diarrhea and Acute Kidney Injury Impression and Plan: #1 acute bronchitis, possible pneumonia -will continue Augmentin 875/125 daily X 7 days. #2 diarrhea - C. difficile ( negative) -Drink Plenty of fluids #3 acute renal failure This might relate to dehydration due to diarrhea. Renal function Improving -Advise to drink plenty of fluids -Will be seen in Renal Clinic #4 Disposition: He will be going home today and will follow with PMD in 2-3 days - General Info Date of Service: 11/01/17 Admission Dx/Problem (Free Text: He was admitted with multiple episode of Diarrhea and Acute Renal Failure. Today he feels good, still had few lose BM and will go home. He has no nausea or vomiting, No fever or chill, appetite is good. His renal function is Improving Subjective Update: He feels good and still have lose BM but more formed, No nausea or vomiting. tolerating food and will be going home Functional Status: Reports: Pain Controlled, Tolerating Diet, Ambulating, Urinating - Review of Systems General: Reports: Weakness (mild), Appetite (good). Denies: Fever, Malaise, Chills HEENT: Denies: Ear Pain, Headaches, Sinus Congestion, Sore Throat, Visual Changes Pulmonary: Denies: Shortness of Breath, Cough, Sputum, Wheezing Cardiovascular: Denies: Chest Pain, Lightheadedness Gastrointestinal: Reports: Diarrhea. Denies: Abdominal Pain, Melena, Nausea, Vomiting Genitourinary: Denies: Dysuria, Frequency, Urgency, Flank Pain Musculoskeletal: Denies: Neck Pain, Shoulder Pain, Leg Pain Skin: Denies: Jaundice, Bruising, Pruritis, Rash Neurological: Denies: Dizziness, Tingling, Tremors Psychiatric: Denies: Confusion, Anxiety - Patient Data Vitals - Most Recent: Last Vital Signs Temp 37.0 C 11/01/17 08:09 Pulse 64 11/01/17 08:09 Resp 18 11/01/17 08:09 BP 119/60 11/01/17 08:09 Pulse Ox 98 11/01/17 08:09 Weight - Most Recent: 113.217 kg I&O - Last 24 hours: Intake & Output 10/31/17 11/01/17 11/01/17 22:59 06:59 14:59 Intake Total 250 500 510 Balance 250 500 510 Lab Results - Last 24 hrs: Laboratory Results - last 24 hr 11/01/17 Range/Units 05:55 Sodium 136 (135-145) mmol/L Potassium 4.1 (3.6-5.0) mmol/L Chloride 111 (101-111) mmol/L Carbon Dioxide 15.0 L (21.0-31.0) mmol/L Anion Gap 14.1 BUN 42 H (7-18) mg/dL Creatinine 2.8 H D (0.6-1.3) mg/dL Est Cr Clr Drug Dosing 30.52 mL/min Estimated GFR (MDRD) 23 Glucose 91 (74-105) mg/dL Calcium 7.9 L (8.4-10.2) mg/dl VIPIN Results - Last 24 hrs: Microbiology 10/29/17 16:00 Gram Stain - Final Sputum - Expectorated Sputum Culture - Final 10/29/17 19:32 Clostridium difficile (PCR) - Final Stool / Feces Med Orders - Current: Current Medications Acetaminophen (Tylenol) 650 mg PO Q4H PRN PRN Reason: Pain (Mild 1-3)/fever Acyclovir (Zovirax) 400 mg PO BID [facility] Last Admin: 11/01/17 08:34 Dose: 400 mg Albuterol (Proventil Hfa) 0 gm INH Q4H [facility] Last Admin: 11/01/17 09:33 Dose: Not Given Amoxicillin/Clavulanate Potassium (Augmentin 875 Mg/125 Mg) 1 tab PO Q12HR [facility] Stop: 11/05/17 23:59 Last Admin: 11/01/17 08:34 Dose: 1 tab Aspirin (Aspirin) 81 mg PO WITHBREAKFAST [facility] Last Admin: 11/01/17 08:34 Dose: 81 mg Azithromycin (Zithromax) 500 mg PO DAILY [facility] Stop: 11/02/17 23:59 Last Admin: 11/01/17 08:34 Dose: 500 mg Benzonatate (Tessalon Perles) 100 mg PO Q6H PRN PRN Reason: Cough Heparin Sodium (Porcine) (Heparin Sodium) 5,000 units SUBCUT Q8HR [facility] Last Admin: 11/01/17 05:54 Dose: 5,000 units Magnesium Oxide (Magnesium Oxide) 250 mg PO BIDM [facility] Last Admin: 11/01/17 08:34 Dose: 250 mg Oseltamivir Phosphate (Tamiflu) 30 mg PO DAILY [facility] Last Admin: 11/01/17 08:33 Dose: 30 mg Pantoprazole Sodium (Protonix) 40 mg PO ACBREAKFAST [facility] Last Admin: 11/01/17 05:53 Dose: 40 mg Potassium Chloride (Klor-Con 10) 20 meq PO BIDMEALS [facility] Last Admin: 11/01/17 08:34 Dose: 20 meq Sodium Bicarbonate (Sodium Bicarbonate) 650 mg PO BID [facility] Last Admin: 11/01/17 08:34 Dose: 650 mg Sodium Chloride (Saline Flush) 10 ml FLUSH ASDIRECTED PRN PRN Reason: Keep Vein Open Last Admin: 10/31/17 20:40 Dose: 10 ml Zolpidem Tartrate (Ambien) 5 mg PO BEDTIME PRN PRN Reason: Sleep Last Admin: 10/29/17 21:45 Dose: 5 mg Discontinued Medications Albuterol (Proventil Neb Soln) 2.5 mg NEB Q4HRRT PRN PRN Reason: sob Azithromycin (Zithromax) Confirm Administered Dose 500 mg .ROUTE .STK-MED ONE Stop: 10/29/17 17:01 Last Admin: 10/29/17 17:17 Dose: Not Given Ceftriaxone Sodium (Rocephin) 1 gm IVPUSH ONETIME ONE Stop: 10/29/17 14:04 Last Admin: 10/29/17 14:11 Dose: 1 gm Ceftriaxone Sodium (Rocephin) 1 gm IVPUSH Q24H [facility] Last Admin: 10/31/17 15:35 Dose: 1 gm Furosemide (Lasix) 10 mg IVPUSH ONETIME ONE Stop: 10/31/17 09:35 Last Admin: 10/31/17 10:00 Dose: 10 mg Potassium Chloride/Sodium Chloride (Normal Saline With 20 Meq Kcl) 1,000 mls @ 100 mls/hr IV ASDIRECTED [facility] Last Infusion: 10/30/17 17:33 Dose: Infused Azithromycin 500 mg/ Sodium (Chloride) 250 mls @ 250 mls/hr IV Q24H [facility] Last Infusion: 10/31/17 20:11 Dose: Infused Ceftriaxone Sodium 1,000 mg/ (Sodium Chloride) 50 mls @ 100 mls/hr IV Q24H [facility] Sodium Chloride (Normal Saline) 1,000 mls @ 999 mls/hr IV ASDIRECTED [facility] Last Admin: 10/30/17 18:02 Dose: 125 mls/hr Sodium Chloride (Normal Saline) 1,000 mls @ 100 mls/hr IV ASDIRECTED [facility] Last Admin: 10/31/17 03:06 Dose: 100 mls/hr Ondansetron HCl (Zofran) 4 mg IV ONETIME ONE Stop: 10/29/17 12:44 Last Admin: 10/29/17 12:53 Dose: 4 mg Oseltamivir Phosphate (Tamiflu) 30 mg PO BID [facility] Oseltamivir Phosphate (Tamiflu) 30 mg PO BID [facility] Last Admin: 10/29/17 20:01 Dose: 30 mg Potassium Chloride (Potassium Chloride Solution) 20 meq PO BID [facility] Last Admin: 10/31/17 20:39 Dose: 20 meq Sodium Chloride (Normal Saline) 999 ml IV ONETIME ONE Stop: 10/30/17 10:11 Last Admin: 10/30/17 10:37 Dose: 999 ml - Exam Quality Assessment: Reports: DVT Prophylaxis. Denies: Supplemental Oxygen, Urine Catheter General: Reports: Alert, Oriented, Cooperative HEENT: Reports: Pupils Equal, Mucous Membr. Moist/[place] Neck: Reports: Supple, No JVD, No Thyromegaly Lungs: Reports: Clear to Auscultation, Normal Respiratory Effort Cardiovascular: Reports: Regular Rate, Regular Rhythm, No Murmurs GI/Abdominal Exam: Normal Bowel Sounds, Soft, Non-Tender. No: Rigid, Rebound, Tender (Male) Exam: Deferred Rectal (Males) Exam: Deferred Back Exam: Reports: Normal Inspection, Full Range of Motion Extremities: Normal Inspection, Normal Range of Motion, No Pedal Edema Skin: Reports: Warm, Dry, Intact Neurological: Reports: No New Focal Deficit Psy/Mental Status: Reports: Alert, Normal Affect, Normal Mood *Q Meaningful Use (DIS) - VTE *Q VTE Criteria *Q: - Stroke *Q Stroke Criteria *Q: - AMI *Q AMI Criteria *Q:
== END 2017-11-01 12:59 | disposition home or self-care (01) | DRG 682 ==
LOC: DL.ED 12:19 → DL.MS 14:51 → UNDOADMIN 14:51 → DL.MS 15:49
PROVIDERS: ADMIT Internal Medicine; ATTEND Internal Medicine
DX: N17.9 Acute kidney failure, unspecified (principal); J10.00 Influenza due to other identified influenza virus with unspecified type of pneumonia; C90.00 Multiple myeloma not having achieved remission; E86.0 Dehydration; R19.7 Diarrhea, unspecified; E83.42 Hypomagnesemia; J20.9 Acute bronchitis, unspecified; Z79.899 Other long term (current) drug therapy
CPT/HCPCS: 36415; 71046; 80048; 80053; 83605; 83735; 84100; 85025; 87040; 87070; 87081; 87205; 87430; 87493; 87804; 96374; 96375; 99284; A9270-GY; J0456; J0696; J1644; J1940; J2405; J3480; J7030; J7050

== ENCOUNTER 2021-10-17 12:49 | Inpatient (IN) | payer MEDICARE, MEDICAID ==
[2021-10-17] MEDS ORDERED: Sodium Chloride 0.9% 10 ML Syringe FLUSH PRN (12:56)
[2021-10-17 13:25] LABS: PTT,PARTIAL THROMBOPLSTIN TIME 29.6 SEC (22.0-34.0)
[2021-10-17 13:28] LABS: ANION GAP 21.6 mEq/L (7-13); CHLORIDE,CL 104 mmol/L (98-107); SODIUM,NA 145 mmol/L (136-145)
[2021-10-17] MEDS ORDERED: Potassium Chloride 10 MEQ Tab.ER PO ONE ×2 (13:37→15:02)
[2021-10-17] MEDS ORDERED: Ondansetron 4 MG/2 ML SDV IV ONE ×2 (13:39→15:02)
[2021-10-17] MEDS ORDERED: Sodium Chloride 0.9% with KCl 1,000 ML IV SCH (13:45)
[2021-10-17] MEDS ORDERED: Diltiazem 25 MG/5 ML SDV IVPUSH ONE (14:35)
[2021-10-17] MEDS ORDERED: Sodium Chloride 0.9% with KCl 1,000 ML IV ONE (15:02)
[2021-10-17] MEDS ORDERED: Diltiazem 25 MG/5 ML SDV IV ONE (15:02)
[2021-10-17] MEDS ORDERED: Sodium Chloride 0.9% 500 ML IV ONE (15:02)
[2021-10-17] MEDS ORDERED: Sodium Chloride 0.9% 500 ML IV SCH (15:30)
[2021-10-17 15:43] LABS: RESPIRATORY SYNCYTIAL VIR NAA NEGATIVE (NEGATIVE)
[2021-10-17 15:47] LABS: CORONAVIRUS COVID-19 NAA POSITIVE (NEGATIVE)
[2021-10-17] MEDS ORDERED: Ondansetron 4 MG Tab.DIS PO PRN (18:30)
[2021-10-17] MEDS ORDERED: Acetaminophen 325 MG Tab PO PRN (18:30)
[2021-10-17] MEDS ORDERED: Sodium Chloride 0.9% 1,000 ML IV SCH (18:30)
[2021-10-17] MEDS ORDERED: oxyCODONE 5 MG Tab PO PRN (18:30)
[2021-10-17] MEDS ORDERED: Docusate Sodium 100 MG Cap PO PRN (18:30)
[2021-10-17] MEDS ORDERED: Dexamethasone 4 MG Tab PO SCH (18:45)
[2021-10-17 19:25] LABS: AMPHETAMINES,URINE NEGATIVE (NEGATIVE); BARBITURATES,URINE NEGATIVE (NEGATIVE); BENZODIAZEPINE,URINE NEGATIVE (NEGATIVE); MDMA (ECSTASY), URINE NEGATIVE (NEGATIVE); METHADONE,URINE NEGATIVE (NEGATIVE); METHAMPHETAMINES,URINE NEGATIVE (NEGATIVE); OPIATES,URINE NEGATIVE (NEGATIVE); OXYCODONE,URINE NEGATIVE (NEGATIVE); PHENCYCLIDINE,URINE NEGATIVE (NEGATIVE); TCA,URINE NEGATIVE (NEGATIVE)
[2021-10-17] MEDS: Sulfamethoxazole/Trimethoprim 800-160 MG Tab PO SCH (22:24)
[2021-10-17] MEDS: Azithromycin 500 MG in Sodium Chloride 0.9% 250 ML IV SCH (22:25)
[2021-10-18] MEDS: Albuterol/Ipratropium 3.0-0.5 MG/3 ML Neb Soln NEB SCH ×4 (04:06→18:13)
[2021-10-18] MEDS: cefTRIAXone 1 GM in Sodium Chloride 0.9% 50 ML IV SCH (04:39)
[2021-10-18] MEDS: Levothyroxine 50 MCG Tab PO SCH (06:31)
[2021-10-18 06:44] LABS: ANION GAP 18.6 mEq/L (7-13)
[2021-10-18] MEDS: Aspirin 81 MG Tab.EC PO SCH (08:57)
[2021-10-18] MEDS: Dexamethasone 6 MG TABLET PO SCH (08:57)
[2021-10-18] MEDS: Potassium Chloride 10 MEQ Tab.ER PO SCH (08:58)
[2021-10-18] MEDS: Enoxaparin 40 MG/0.4 ML Syringe SUBCUT SCH (08:59)
[2021-10-18] MEDS ORDERED: Non-Formulary Medication 1 Each (Valacyclovir Hcl [Valtrex] 500 MG Tablet) PO SCH (09:00)
[2021-10-18] MEDS ORDERED: Enoxaparin 30 MG/0.3 ML Syringe SUBCUT SCH (09:00)
[2021-10-18] MEDS ORDERED: Potassium Chloride 10 MEQ Tab.ER PO SCH (09:00)
[2021-10-18] MEDS ORDERED: Dexamethasone 6 MG TABLET PO SCH (09:00)
[2021-10-18] MEDS ORDERED: Non-Formulary Medication 1 Each (Magnesium Oxide [Magnesium] 400 MG Capsule) PO SCH (09:00)
[2021-10-18] MEDS: amLODIPine 5 MG Tab PO SCH (09:03)
[2021-10-18] MEDS: Losartan 50 MG Tab PO SCH (09:03)
[2021-10-18] MEDS: Furosemide 20 MG Tab PO SCH (09:05)
[2021-10-18] MEDS ORDERED: Furosemide 40 MG/4 ML VIAL IVPUSH ONE (10:08)
[2021-10-18] MEDS ORDERED: Dexamethasone 4 MG/ML SDV IVPUSH ONE (10:09)
[2021-10-18] MEDS: Sodium Chloride 0.9% 10 ML Syringe FLUSH PRN ×2 (11:03→17:50)
[2021-10-18] MEDS: Azithromycin 500 MG in Sodium Chloride 0.9% 250 ML IV SCH (17:50)
[2021-10-19] MEDS: cefTRIAXone 1 GM in Sodium Chloride 0.9% 50 ML IV SCH (00:13)
[2021-10-19] MEDS: Albuterol/Ipratropium 3.0-0.5 MG/3 ML Neb Soln NEB SCH ×4 (00:21→18:17)
[2021-10-19] MEDS: Levothyroxine 50 MCG Tab PO SCH (06:31)
[2021-10-19] MEDS: Dexamethasone 6 MG TABLET PO SCH (10:44)
[2021-10-19] MEDS: Losartan 50 MG Tab PO SCH (10:48)
[2021-10-19] MEDS: Aspirin 81 MG Tab.EC PO SCH (10:49)
[2021-10-19] MEDS: Potassium Chloride 10 MEQ Tab.ER PO SCH (10:49)
[2021-10-19] MEDS: Furosemide 20 MG Tab PO SCH (10:49)
[2021-10-19] MEDS: Enoxaparin 40 MG/0.4 ML Syringe SUBCUT SCH (10:54)
[2021-10-19] MEDS: amLODIPine 5 MG Tab PO SCH (10:55)
[2021-10-19] MEDS: Sulfamethoxazole/Trimethoprim 800-160 MG Tab PO SCH (10:55)
[2021-10-19 13:10] LABS: O2 DELIVERY DEVICE HI FLOW NASAL CANNU
[2021-10-19 13:14] LABS: O2 SATURATION ARTERIAL 94 % (95-100); PCO2 ARTERIAL 24 mmHg (35-45); PO2 ARTERIAL 73 mmHg (70-100)
[2021-10-19 13:15] LABS: BASE EXCESS ARTERIAL -6 mmol/L ((-2)-(+3))
[2021-10-19] MEDS: Azithromycin 500 MG in Sodium Chloride 0.9% 250 ML IV SCH (18:49)
[2021-10-20] MEDS: cefTRIAXone 1 GM in Sodium Chloride 0.9% 50 ML IV SCH (00:22)
[2021-10-20] MEDS: Albuterol/Ipratropium 3.0-0.5 MG/3 ML Neb Soln NEB SCH ×4 (00:25→18:55)
[2021-10-20] MEDS: Levothyroxine 50 MCG Tab PO SCH (05:31)
[2021-10-20] MEDS: Aspirin 81 MG Tab.EC PO SCH (08:50)
[2021-10-20] MEDS: Furosemide 20 MG Tab PO SCH (08:50)
[2021-10-20] MEDS: Potassium Chloride 10 MEQ Tab.ER PO SCH (08:50)
[2021-10-20] MEDS: Dexamethasone 6 MG TABLET PO SCH (08:50)
[2021-10-20] MEDS: Enoxaparin 40 MG/0.4 ML Syringe SUBCUT SCH (08:51)
[2021-10-20] MEDS: amLODIPine 5 MG Tab PO SCH (08:51)
[2021-10-20] MEDS: Losartan 50 MG Tab PO SCH (08:51)
[2021-10-20] MEDS ORDERED: LORazepam 1 MG Tab PO PRN (09:23)
[2021-10-20] MEDS: Azithromycin 500 MG in Sodium Chloride 0.9% 250 ML IV SCH (18:39)
[2021-10-20] MEDS ORDERED: Furosemide 40 MG/4 ML VIAL IVPUSH ONE (19:13)
[2021-10-20] MEDS ORDERED: Flumazenil 0.1 MG/ML 5 ML MDV IVPUSH PRN (19:13)
[2021-10-20] MEDS ORDERED: methylPREDNISolone Sodium Succinate 40 MG/1 ML SDV IVPUSH SCH (20:45)
[2021-10-20] MEDS: LORazepam 2 MG/ML SDV IVPUSH PRN (20:47)
[2021-10-20 21:13] LABS: ANION GAP 22.4 mEq/L (7-13)
[2021-10-20] MEDS: methylPREDNISolone Sodium Succinate 40 MG/1 ML SDV IVPUSH SCH (22:07)
[2021-10-21] MEDS: Albuterol/Ipratropium 3.0-0.5 MG/3 ML Neb Soln NEB SCH ×4 (00:06→19:12)
[2021-10-21] MEDS: cefTRIAXone 1 GM in Sodium Chloride 0.9% 50 ML IV SCH (00:09)
[2021-10-21] MEDS: LORazepam 2 MG/ML SDV IVPUSH PRN ×5 (00:30→21:00)
[2021-10-21] MEDS: methylPREDNISolone Sodium Succinate 40 MG/1 ML SDV IVPUSH SCH ×4 (03:26→21:03)
[2021-10-21] MEDS ORDERED: Glucagon,Human Recombinant 1 MG Vial IM PRN (08:18)
[2021-10-21] MEDS ORDERED: 50% Dextrose in Water 50 ML Syringe IVPUSH PRN (08:18)
[2021-10-21] MEDS: Enoxaparin 60 MG/0.6 ML Syringe SUBCUT SCH ×2 (09:01→21:05)
[2021-10-21] MEDS: Sodium Chloride 0.9% 10 ML Syringe FLUSH PRN (09:04)
[2021-10-21] MEDS: Morphine 2 MG/ML SYRINGE IVPUSH PRN ×2 (09:46→14:11)
[2021-10-21] MEDS ORDERED: Furosemide 40 MG/4 ML VIAL IVPUSH ONE (10:11)
[2021-10-21] MEDS: amLODIPine 5 MG Tab PO SCH (10:25)
[2021-10-21] MEDS: Potassium Chloride 10 MEQ Tab.ER PO SCH (10:25)
[2021-10-21] MEDS: Levothyroxine 50 MCG Tab PO SCH (10:25)
[2021-10-21] MEDS: Furosemide 20 MG Tab PO SCH (10:25)
[2021-10-21] MEDS: Losartan 50 MG Tab PO SCH (10:25)
[2021-10-21] MEDS: Aspirin 81 MG Tab.EC PO SCH (10:25)
[2021-10-21] MEDS: Levofloxacin/Dextrose 5%-Water 500 MG in Premix Bag 1 BAG IV SCH (11:27)
[2021-10-21] MEDS: Insulin Lispro 100 Units/ML 3 ML Vial SUBCUT SCH ×3 (12:23→21:46)
[2021-10-22] MEDS: Albuterol/Ipratropium 3.0-0.5 MG/3 ML Neb Soln NEB SCH ×4 (00:19→17:56)
[2021-10-22] MEDS: LORazepam 2 MG/ML SDV IVPUSH PRN ×5 (00:47→21:09)
[2021-10-22] MEDS: methylPREDNISolone Sodium Succinate 40 MG/1 ML SDV IVPUSH SCH ×4 (04:16→21:09)
[2021-10-22 07:05] LABS: ANION GAP 14.7 mEq/L (7-13); CHLORIDE,CL 109 mmol/L (98-107); SODIUM,NA 143 mmol/L (136-145)
[2021-10-22] MEDS: Levothyroxine 50 MCG Tab PO SCH (08:36)
[2021-10-22] MEDS: Potassium Chloride 10 MEQ Tab.ER PO SCH (09:08)
[2021-10-22] MEDS: Losartan 50 MG Tab PO SCH (09:08)
[2021-10-22] MEDS: Sulfamethoxazole/Trimethoprim 800-160 MG Tab PO SCH (09:09)
[2021-10-22] MEDS: amLODIPine 5 MG Tab PO SCH (09:09)
[2021-10-22] MEDS: Furosemide 20 MG Tab PO SCH (09:09)
[2021-10-22] MEDS: Aspirin 81 MG Tab.EC PO SCH (09:10)
[2021-10-22] MEDS: Insulin Lispro 100 Units/ML 3 ML Vial SUBCUT SCH ×4 (09:13→21:42)
[2021-10-22] MEDS: Enoxaparin 60 MG/0.6 ML Syringe SUBCUT SCH ×2 (09:19→21:07)
[2021-10-22] MEDS: Morphine 2 MG/ML SYRINGE IVPUSH PRN ×3 (09:20→23:10)
[2021-10-22] MEDS: Levofloxacin/Dextrose 5%-Water 500 MG in Premix Bag 1 BAG IV SCH (10:38)
[2021-10-23] MEDS: Albuterol/Ipratropium 3.0-0.5 MG/3 ML Neb Soln NEB SCH ×4 (01:18→17:54)
[2021-10-23] MEDS: methylPREDNISolone Sodium Succinate 40 MG/1 ML SDV IVPUSH SCH ×5 (03:13→22:16)
[2021-10-23] MEDS: Morphine 2 MG/ML SYRINGE IVPUSH PRN ×6 (03:17→23:17)
[2021-10-23] MEDS: LORazepam 2 MG/ML SDV IVPUSH PRN ×6 (06:10→22:54)
[2021-10-23] MEDS: Levothyroxine 50 MCG Tab PO SCH (06:41)
[2021-10-23] MEDS: Insulin Lispro 100 Units/ML 3 ML Vial SUBCUT SCH ×4 (09:35→22:12)
[2021-10-23] MEDS: Enoxaparin 60 MG/0.6 ML Syringe SUBCUT SCH ×2 (09:47→20:22)
[2021-10-23] MEDS ORDERED: Furosemide 100 MG/10 ML SDV IVPUSH ONE (10:00)
[2021-10-23] MEDS: Losartan 50 MG Tab PO SCH (10:36)
[2021-10-23] MEDS: Levofloxacin/Dextrose 5%-Water 500 MG in Premix Bag 1 BAG IV SCH (11:36)
[2021-10-23] MEDS: Aspirin 81 MG Tab.EC PO SCH (12:52)
[2021-10-23] MEDS: Potassium Chloride 10 MEQ Tab.ER PO SCH (12:52)
[2021-10-23] MEDS: Furosemide 20 MG Tab PO SCH (12:53)
[2021-10-23] MEDS: amLODIPine 5 MG Tab PO SCH (12:53)
[2021-10-24] MEDS: Albuterol/Ipratropium 3.0-0.5 MG/3 ML Neb Soln NEB SCH ×4 (00:19→18:55)
[2021-10-24] MEDS: Morphine 2 MG/ML SYRINGE IVPUSH PRN ×6 (00:50→19:49)
[2021-10-24] MEDS: LORazepam 2 MG/ML SDV IVPUSH PRN ×9 (00:50→22:32)
[2021-10-24] MEDS: methylPREDNISolone Sodium Succinate 40 MG/1 ML SDV IVPUSH SCH ×4 (02:53→20:45)
[2021-10-24] MEDS: Levothyroxine 50 MCG Tab PO SCH (05:33)
[2021-10-24] MEDS: Budesonide 0.5 MG/2 ML Neb Susp NEB SCH ×2 (07:44→18:55)
[2021-10-24] MEDS: Losartan 50 MG Tab PO SCH (08:51)
[2021-10-24] MEDS: Aspirin 81 MG Tab.EC PO SCH (08:52)
[2021-10-24] MEDS: Sulfamethoxazole/Trimethoprim 800-160 MG Tab PO SCH (08:52)
[2021-10-24] MEDS: Furosemide 20 MG Tab PO SCH (08:52)
[2021-10-24] MEDS: Potassium Chloride 10 MEQ Tab.ER PO SCH (08:52)
[2021-10-24] MEDS: amLODIPine 5 MG Tab PO SCH (08:52)
[2021-10-24] MEDS: Insulin Lispro 100 Units/ML 3 ML Vial SUBCUT SCH ×4 (10:23→23:00)
[2021-10-24] MEDS: Enoxaparin 60 MG/0.6 ML Syringe SUBCUT SCH ×2 (10:24→20:41)
[2021-10-24] MEDS: Levofloxacin/Dextrose 5%-Water 500 MG in Premix Bag 1 BAG IV SCH (10:25)
[2021-10-24 10:33] LABS: ANION GAP 15.9 mEq/L (7-13)
[2021-10-24 10:41] LABS: BASE EXCESS ARTERIAL -2 mmol/L ((-2)-(+3)); O2 DELIVERY DEVICE BIPAP; O2 SATURATION ARTERIAL 91 % (95-100); PCO2 ARTERIAL 35 mmHg (35-45); PO2 ARTERIAL 63 mmHg (70-100)
[2021-10-24 10:43] LABS: ALLEN TEST pos; O2 FLOW RATE 80
[2021-10-24] MEDS ORDERED: Sodium Chloride 0.45% 1,000 ML IV SCH (14:00)
[2021-10-24] MEDS ORDERED: Furosemide 40 MG/4 ML VIAL IVPUSH SCH (14:15)
[2021-10-24] MEDS ORDERED: Piperacillin/Tazobactam 2.25 GM in Sodium Chloride 0.9% 50 ML IV SCH (14:30)
[2021-10-24] MEDS ORDERED: VANCOmycin 1.5 GM/300 ML 1.5 GM in Premix Bag 1 BAG IV SCH (15:00)
[2021-10-24] MEDS ORDERED: Piperacillin/Tazobactam 4.5 GM in Sodium Chloride 0.9% 100 ML IV SCH (18:00)
[2021-10-24 21:14] VITALS: BP 131/68; PULSE 96
[2021-10-24] MEDS ORDERED: fentaNYL Citrate/PF 1,500 MCG/30 ML PCA Vial IV SCH (21:30)
[2021-10-24] MEDS ORDERED: fentaNYL Citrate/PF 1,500 MCG/30 ML PCA Vial ONE (21:35)
[2021-10-24] MEDS ORDERED: Morphine 2 MG/ML SYRINGE IVPUSH PRN (22:30)
== END 2021-10-25 00:14 | disposition expired | DRG 193 ==
LOC: DL.ED 12:49 → DL.MS 18:11
PROVIDERS: ADMIT Internal Medicine; ATTEND Internal Medicine
PROC: 5A09457 Assistance with Respiratory Ventilation, 24-96 Consecutive Hours, Continuous Positive Airway Pressure (ICD-10-PCS; principal; 2021-10-21)
DX: J15.9 Unspecified bacterial pneumonia (principal); J80 Acute respiratory distress syndrome; R09.02 Hypoxemia; R53.1 Weakness; C90.00 Multiple myeloma not having achieved remission; D61.818 Other pancytopenia; D68.9 Coagulation defect, unspecified; E46 Unspecified protein-calorie malnutrition; J44.0 Chronic obstructive pulmonary disease with (acute) lower respiratory infection; N39.0 Urinary tract infection, site not specified; J44.1 Chronic obstructive pulmonary disease with (acute) exacerbation; E87.0 Hyperosmolality and hypernatremia; N17.9 Acute kidney failure, unspecified; Z51.5 Encounter for palliative care; Z66 Do not resuscitate; E87.6 Hypokalemia; R53.81 Other malaise; U09.9 Post COVID-19 condition, unspecified; N28.9 Disorder of kidney and ureter, unspecified; E11.9 Type 2 diabetes mellitus without complications; D69.6 Thrombocytopenia, unspecified; D64.9 Anemia, unspecified; M84.459D Pathological fracture, hip, unspecified, subsequent encounter for fracture with routine healing; E66.9 Obesity, unspecified; I12.9 Hypertensive chronic kidney disease with stage 1 through stage 4 chronic kidney disease, or unspecified chronic kidney disease; N18.2 Chronic kidney disease, stage 2 (mild); H54.7 Unspecified visual loss; S05.11XA Contusion of eyeball and orbital tissues, right eye, initial encounter; Z92.21 Personal history of antineoplastic chemotherapy; Z91.81 History of falling; Z79.82 Long term (current) use of aspirin; Z79.890 Hormone replacement therapy; Z79.899 Other long term (current) drug therapy; Z82.3 Family history of stroke; Z82.49 Family history of ischemic heart disease and other diseases of the circulatory system; Z83.3 Family history of diabetes mellitus; Z80.6 Family history of leukemia; Z68.37 Body mass index [BMI] 37.0-37.9, adult; Z99.81 Dependence on supplemental oxygen; Y92.009 Unspecified place in unspecified non-institutional (private) residence as the place of occurrence of the external cause; W18.39XA Other fall on same level, initial encounter
CPT/HCPCS: 0241U; 36415; 36600; 51702; 70450; 70486; 71045; 72125; 80048; 80053; 80305-QW; 80307; 81001; 82150; 82550; 82803; 82947; 83605; 83690; 83735; 83880; 84484; 85025; 85027; 85379; 85610; 85730; 87040; 87086; 93005; 93010; 93970; 94640; 94660; 99284; 99285-25; A9270-GY; J0456; J0696; J1100; J1650; J1815-GY; J1940; J1956; J2060; J2270; J2405; J2543; J2920; J3010; J3370; J3480; J3490; J7030; J7040; J7050; J7620-GY; J8540